=== PATIENT | female | born 1945 | race African-American/Black ===

== ENCOUNTER 2019-04-10 20:16 | Emergency (ER) | payer MEDICARE, MEDICAID ==
[~2019-04-10] VITALS: Ht 157.5 cm; Wt 91.0 kg
[~2019-04-10 20:16] MED LIST: ACET-3161 PO; ASPI-1393 PO; GABA-531 PO; LORA0.5T2 PO; LOSA25TA3 PO; SIMV20TA6 PO; TRIA1TAB92 PO
[2019-04-10 21:22] LABS: BASOPHILS % 0.9 % (0.0-2.0); EOSINOPHILS % 8.7 % (0.0-5.0); HEMATOCRIT. 42.6 % (36.0-48.0); HEMOGLOBIN. 14.2 g/dL (12.0-16.0); LYMPHOCYTES % 20.9 % (20.0-50.0); MEAN CORPUSCULAR HEMOGLOBIN 28.2 pg (28.0-32.0); MEAN CORPUSCULAR VOLUME 84.5 fL (81.0-99.0); MEAN PLATELET VOLUME 7.6 fl (7.4-10.4); NEUTROPHILS % 65.5 % (40.0-76.0); PLATELET 277 x1000/uL (130-400); RED BLOOD CELL COUNT 5.03 mill/uL (4.2-5.4); RED CELL DISTRIBUTION WIDTH 16.2 % (11.6-14.6)
[2019-04-10 21:27] LABS: CHLORIDE 95 mEq/L (98-107)
[2019-04-10 21:29] LABS: PROTHROMBIN TIME 10.1 sec (9.6-11.0)
[2019-04-10] MEDS: SODIUM CHLORIDE 0.9% 1000ML BAG (SEPSIS BOLUS) IV ONE (21:41)
[2019-04-10] MEDS: ONDANSETRON HCL 4MG/2ML INJ IV ONE (21:41)
[2019-04-10 22:07] LABS: CLARITY URINE TURBID (CLEAR); COLOR URINE YELLOW (YELLOW); KETONES URINE TRACE (NEGATIVE); LEUKOCYTE ESTERASE URINE 3+ (NEGATIVE); NITRITE URINE NEGATIVE (NEGATIVE); OCCULT BLOOD URINE 2+ (NEGATIVE); PH URINE 5.5 (4.5-8.0); PROTEIN URINE 1+ (NEGATIVE); SPECIFIC GRAVITY URINE 1.015 (1.005-1.030); UROBILINOGEN URINE 0.2 E.U./dL (0.2-1.0)
[2019-04-10] MEDS: CEFTRIAXONE 1 G PREMIX 50 ML IV NR (23:13)
[2019-04-10] MEDS: LORAZEPAM 1MG TABLET PO NR (23:13)
[2019-04-10] MEDS: FAMOTIDINE 20MG TABLET PO ONE (23:13)
[2019-04-11 01:12] VITALS: BP 173/86
== END 2019-04-11 01:16 | disposition home or self-care (01) ==
LOC: ER 20:16 → CANBEDREQ 04-11 01:25
DX: F10.129 Alcohol abuse with intoxication, unspecified (principal); R11.2 Nausea with vomiting, unspecified; E87.2 Acidosis; I10 Essential (primary) hypertension; G25.2 Other specified forms of tremor; M79.89 Other specified soft tissue disorders; R06.02 Shortness of breath; Z79.899 Other long term (current) drug therapy
CPT/HCPCS: 36415; 71045; 80053; 80320; 81003; 83605; 83880; 84145; 84484; 85025; 85610; 87040; 87077; 87086; 87186; 93005; 96361; 96374; 96375; 99284; J0696; J2405; J7030; J7040; G0480